=== PATIENT | male | born 1955 | race Caucasian/White ===

== ENCOUNTER 2018-11-14 00:28 | Inpatient (IN) ==
[2018-11-14] MEDS ORDERED: NS 1,000 ML IV ONE (00:53)
[2018-11-14] MEDS ORDERED: ZOFRAN IV ONE ×2 (00:53→02:54)
[2018-11-14] MEDS ORDERED: MORPHINE IV ONE ×2 (00:53→02:40)
[2018-11-14 01:20] LABS: BASO# 0.03 X1000 (0.0-0.2); BASO% 0.2 % (0.0-0.8); EOS# 0.04 X1000 (0.0-0.7); EOS% 0.3 % (0.0-10.0); HEMOGLOBIN 15.5 g/dL (14.0-18.0); IMM GRAN# 0.02 X1000 (0.0-0.04); IMM GRAN% 0.1 % (0.0-0.5); LYMPH# 1.06 X1000 (1.2-3.4); LYMPH% 7.6 % (20.5-51.1); MCH 28.1 PG (27-31); MCHC 34.4 g/dL (33-37); MCV 81.7 FL (81-99); MONO# 0.45 X1000 (0.11-0.59); MONO% 3.2 % (1.7-9.3); MPV 12.2 FL (7.4-10.4); NEUT# 12.32 X1000 (1.4-6.5); NEUT% 88.6 % (42.2-75.2); PLT 274 X1000 (130-400); RBC 5.51 XMIL (4.7-6.1); RDW 13.3 % (11.5-14.5); WBC 13.92 X1000 (4.8-10.8)
[2018-11-14 01:30] LABS: AGAP 15; ALB/GLOB RATIO 1.8; ALBUMIN 4.9 g/dL (3.5-5.0); ALKALINE PHOSPHATASE 87 U/L (32-122); AMYLASE 59 U/L (20-200); BUN 22 mg/dL (8-22); CALCIUM 9.8 mg/dL (8.8-10.2); CHLORIDE 100 mmol/L (98-107); COSMO 288; ESTIMATED GFR > 60; GLUCOSE 300 mg/dL (70-104); GOT 16 U/L (10-34); GPT 18 U/L (10-44); LIPASE 40 U/L (13-60); POTASSIUM 4.3 mmol/L (3.5-5.1); SODIUM 137 mmol/L (136-145); TCO2 22 mmol/L (25-35); TOTAL BILIRUBIN 0.62 mg/dL (0.20-1.00); TOTAL PROTEIN 7.7 g/dL (6.3-8.3)
[2018-11-14 03:03] LABS: URINE SOURCE CLEAN CATCH
--- NOTE | 2018-11-14 03:08 | PROVIDER DOCUMENTATION ---
This chart was entered by Paula Akins Scribe, acting as scribe for Shan Palma MD. HPI-Abdominal Pain/GI Problem - General Chief Complaint: Abdominal Pain Stated Complaint: ABD PAIN Time Seen by Provider: 11/14/18 00:53 Source: patient Allergies/Adverse Reactions: Patient Allergies Allergy/AdvReac Type Severity Reaction Status Date / Time No Known Allergies Allergy Verified 02/26/15 23:15 Home Medications: Home Medication List Medication Instructions Recorded Confirmed Last Taken Type Aspirin 81 mg PO HS 02/26/15 02/26/15 02/25/15 21:00 History Diltiazem HCl [Cardizem LA] 240 mg PO HS 02/26/15 02/26/15 02/25/15 21:00 History Furosemide [Lasix] 20 mg PO DAILY 02/26/15 02/26/15 02/26/15 09:00 History Gemfibrozil 600 mg PO HS 02/26/15 02/26/15 02/25/15 History 600mg po Glipizide/Metformin HCl 1 each PO HS 02/26/15 02/26/15 02/25/15 21:00 History [Glipizide-Metformin 2.5-500 mg] Insulin Aspart [Novolog Flexpen] 100 unit SQ DIRECTED 02/26/15 02/26/15 02/26/15 History Insulin Glargine [Lantus] 75 unit SUBQ QAM 02/26/15 02/26/15 02/26/15 08:00 History sq Lansoprazole 30 mg PO HS 02/26/15 02/26/15 02/25/15 21:00 History Losartan [Cozaar] 100 mg PO DAILY 02/26/15 02/26/15 02/25/15 21:00 History Omeprazole 40 mg PO HS 02/26/15 02/26/15 02/25/15 21:00 History Potassium Chloride [Klor-Con M20] 20 mcg PO HS 02/26/15 02/26/15 02/25/15 21:00 History Pravastatin Sodium 80 mg PO HS 02/26/15 02/26/15 02/25/15 21:00 History 1po - History of Present Illness-ABD Nature of Presenting Problems: pt is a 62 yr old male presenting with complaint of epigastric pain, nausea and vomiting, pt reports onset at 1400, vomiting began at 1700 and has continued since. pt reports severe pain, no diarrhea, fever/chills. pt denies any other complaints Abdominal Pain Onset Location: reports: epigastric Pain Radiation: reports: no radiation Quality of Pain: reports: cramping, fullness, sharp Severity in ED: reports: severe Onset/Duration: reports: this afternoon (1400) Timing: reports: still present, changing over time, getting worse Activities at Onset: reports: light activity Exposure to sick contacts?: No Modifying Factors: improves with: nothing Associated Symptoms: reports: nausea, vomiting. denies: chest pain, constipation, diarrhea, fever/chills, genitourinary problems, shortness of breath Last BM: unsure Dark Stools Present?: reports: none noticed Rectal Bleeding: reports: none Rectal Pain: reports: none # of Vomiting Episodes: 10 Emesis Description: reports: other (bile) Bruising or Bleeding Gums?: No Similar Symptoms Previously?: No Recently seen or treated by another doctor?: No Review of Systems - Adult - REVIEW OF SYSTEMS - ADULT Constitutional: reports: fatique. denies: chills, fever Eyes: reports: no symptoms reported Ears, Nose, Mouth & Throat: reports: no symptoms reported Cardiovascular: denies: chest pain, palpitations, syncope Respiratory: denies: shortness of breath Gastrointestinal: reports: abdominal pain, nausea, vomiting. denies: diarrhea Genitourinary: denies: dysuria, frequency, flank pain Musculoskeletal: reports: no symptoms reported Integumentary: reports: no symptoms reported Neurological: denies: dizziness/vertigo, headache/migraines Psychiatric: reports: no symptoms reported Endocrine: reports: no symptoms reported Hematologic/Lymphatic: reports: no symptoms reported Allergic/Immunologic: reports: no symptoms reported All Other Systems: Reviewed and Negative Past History - Adult - PAST MEDICAL HISTORY-ADULT Review of Records: reports: Old Records Reviewed, Nursing Assessment Review, Medications Reviewed, Social history reviewed & non-contributory. Major Childhood Illnesses: reports: denies history Cardiovascular: reports: denies history Respiratory: reports: denies history Gastrointestinal: reports: denies history Obstetrical/Gynecological: reports: denies history Genitourinary: reports: denies history Musculoskeletal: reports: denies history Neurological: reports: denies history Endocrine/Immune: reports: Diabetes Other Conditions: reports: denies history - IMMUNIZATION STATUS Childhood Immunizations: See Nurse Assessment Flu Vaccine: See Nurse Assessment - FAMILY HISTORY Family History: reviewed, not pertinent - SOCIAL HISTORY Smoking: denies Substance Use: denies Living Situation: family Physical Exam-General - PHYSICAL EXAM-ADULT Initial Vital Signs Reviewed: Yes - CONSTITUTIONAL General Appearance: alert, moderate distress, obese - EYES Eyes: PERRL/EOMI - HEAD, EARS, NOSE, MOUTH & THROAT HENMT: normocephalic/atraumatic, moist mucous membranes - NECK Neck: non-tender, full range of motion, supple, normal inspection - RESPIRATORY Respiratory: chest non-tender, lungs clear, normal breath sounds - CARDIOVASCULAR Cardiovascular: normal peripheral pulses, regular rate, rhythm, no edema - GASTROINTESTINAL (ABDOMEN) Abdominal Exam: normal bowel sounds, soft, tenderness (epigastric tenderness) - LYMPHATIC Lymphatic: no adenopathy - MUSCULOSKELETAL Back Exam: normal inspection Extremity: normal range of motion, non-tender - SKIN Integumentary: normal color, normal turgor, warm/dry - PSYCHIATRIC Psych/Mental Status: normal mood/affect Progress - PLAN OF CARE/RESULTS Progress/Plan/Lab Results: Vital Signs - 8 hr 11/14/18 00:39 Temperature 98.9 F Pulse Rate 79 Respiratory Rate 19 Blood Pressure 205/89 O2 Sat by Pulse Oximetry 97 Orders Category Date Time Status Saline Loc DIRECTED Care 11/14/18 00:42 Active NPO Diet 11/14/18 00:[address] ABD/PELVIS W/IV CONT ONLY [CT] Stat Exams 11/14/18 00:53 Ordered AMYLASE [CHEM] Stat Lab 11/14/18 00:42 Ordered CBC WITH ELECTRONIC DIFF [HEME] Stat Lab 11/14/18 00:42 Ordered COMPREHENSIVE METABOLIC PANEL [CHEM] Stat Lab 11/14/18 00:42 Ordered LIPASE [CHEM] Stat Lab 11/14/18 00:42 Ordered TROPONIN T Stat Lab 11/14/18 00:54 Uncollected URINALYSIS W/POSS RFLX CULT [URINALYSIS] Stat Lab 11/14/18 00:42 Uncollected 0.9% Sodium Chloride Inj [Ns] 1,000 ml Med 11/14/18 00:53 Active IV 999 mls/hr Morphine Med 11/14/18 00:53 Discontinued 4 mg IV NOW ONE Ondansetron [Zofran] Med 11/14/18 00:53 Discontinued 4 mg IV NOW ONE patient with persistent pain, cholelithiasis and leukocytosis. Result Diagrams: 11/14/18 00:45 11/14/18 00:45 - CT/MRI 1 CT Study: Abdomen, Pelvis Impression: See EMR Report (cholelithiasis) - CONSULTS/PCP/HOSPITALIST Notification #1 *Consult/PCP/Hospitalist*: Dr. Barrera Time Discussed: 03:07 Consult Disposition: Admit (to hospitalist) #2 Consult: Dr. Beltran Time Discussed: 03:16 Consult Disposition: Admit Departure - Departure Date of Disposition Decision: 11/14/18 Time of Disposition Decision: 03:07 DIAGNOSIS: Leukocytosis Cholelithiases Qualifiers: Cholelithiasis location: gallbladder Cholecystitis acuity: unspecified acuity Biliary obstruction: without biliary obstruction Disposition: ADMITTED INPATIENT 09 Certified Medical Emergency: Emergent Condition: Serious Referrals and Follow-Ups: Isaura Watkins MD [Primary Care Provider] - - Critical Care Note This patient required my direct & personal management of CC.: No Attestation - Physician/ JON Attestation The physician spent face to face time with patient:: Yes Advanced Practice Provider documentation review:: Supervising physician onsite and consulted in the evaluation and care of this patient. The physician did have a face to face encounter with the patient. This chart was documented by the indicated scribe, (Paula Akins Scribe) and accurately reflects the services I performed and decisions made by me, Shan Palma MD, as attested by the provider's signature.
[2018-11-14 03:12] LABS: UR EPITHELIAL CELLS <10 /HPF (<10); URINE BACTERIA NEGATIVE /HPF; URINE RBC <10 /HPF (<10); URINE WBC <10 /HPF (<10)
[2018-11-14 03:14] LABS: BILIRUBIN URINE NEGATIVE (NEGATIVE); BLOOD URINE NEGATIVE (NEGATIVE); COLOR YELLOW; GLUCOSE URINE >1000 mg/dL (NEGATIVE); KETONE URINE 80 mg/dL (NEGATIVE); LEUKOCYTES URINE NEGATIVE (NEGATIVE); NITRITE URINE NEGATIVE (NEGATIVE); PH URINE 7.5; PROTEIN URINE NEGATIVE (NEGATIVE); SP GRAVITY URINE 1.032; TURBIDITY URINE CLEAR (CLEAR); UROBILINOGEN URINE NORMAL (NORMAL)
--- NOTE | 2018-11-14 04:18 | HISTORY AND PHYSICAL ---
PRIMARY CARE PHYSICIAN: Dr. Isaura Watkins. CHIEF COMPLAINT: Abdominal pain x1 day. HISTORY OF PRESENTING ILLNESS: This is a 62-year-old male with a history of hypertension, hyperlipidemia, diabetes mellitus type 2, who had presented to the emergency department with a 1- day history of having worsening right upper quadrant pain. The patient states that he was nauseated and vomiting. The patient states that the pain was pretty severe and subsequently had come to the emergency department. In the ED he was evaluated, he had imaging done which did show cholelithiasis. His case was discussed with General Surgery and due to the fact that the patient is symptomatic he will require admission for further management. At the time of my examination the patient denied any headache, fever, chills, chest pain, shortness of breath, or weight changes, but complained of abdominal pain, nausea, vomiting. PAST MEDICAL HISTORY: Includes hypertension, hyperlipidemia, diabetes mellitus type 2, hypoaldosteronism. PAST SURGICAL HISTORY: Left BKA, cervical fusion, right carpal tunnel release, adrenal gland removal. ALLERGIES: Menoxidil and Bactrim. CURRENT MEDICATIONS: Include aspirin 81 mg p.o. at bedtime, diltiazem 240 mg p.o. at bedtime, Lasix 20 mg p.o. daily, gemfibrozil 600 mg p.o. at bedtime. Glipizide/metformin 2.5/500 one p.o. at bedtime, NovoLog FlexPen as directed, insulin glargine 75 units subcutaneous q.a.m., pravastatin 80 mg p.o. at bedtime. SOCIAL HISTORY: A former smoker. Denies any history of alcohol or illicit drug use. FAMILY HISTORY: No history of coronary disease. REVIEW OF SYSTEMS: A 14-point review of systems is as in HPI. Other systems negative. PHYSICAL EXAMINATION: GENERAL: A cooperative friendly male. He is resting comfortably now. VITAL SIGNS: Temperature 98.9 degrees, pulse 79, respirations 19, blood pressure 205/89. HEENT: Atraumatic, normocephalic. Extraocular movements are intact. PERRLA. NECK: No masses. CHEST: Clear to auscultation. CARDIOVASCULAR: Regular rate and rhythm. ABDOMEN: Soft. Right upper quadrant tenderness. EXTREMITIES: [facility] NEUROLOGIC: He is awake, alert, oriented x3. : No bladder distention. SKIN: Warm. LABORATORIES AND STUDIES: WBC is 13.92, hemoglobin 15.5, hematocrit 45.0, platelets 274,000. Sodium 137, potassium 4.3, chloride 100, CO2 is 22, BUN is 22, creatinine is 1.0, glucose is 300. ASSESSMENT: A 62-year-old male with a history of diabetes mellitus type 2, hypertension, hyperlipidemia, who had presented to the emergency department with a 1-day history of worsening right upper quadrant pain. He was seen in the emergency department and was found to have gallstones on imaging. The case was discussed with General Surgery and due to the fact that the patient is symptomatic he will require admission for further management. 1. Symptomatic cholelithiasis. 2. Hypertension. 3. Diabetes mellitus type 2. 4. Hyperlipidemia. PLAN: 1. We will admit the patient to medical floor with telemetry. 2. We will keep the patient NPO. 3. We will give the patient adequate pain control antiemetics. 4. We will consult General Surgery. 5. We will monitor blood pressure closely. 6. We will monitor blood glucose and put the patient on a sliding scale insulin regimen. 7. We will hold home medications for now. 8. Put the patient on DVT prophylaxis with Lovenox after surgery. 9. We will continue to follow, reassess and make further recommendations based on the patient's clinical course. cc: Ermias Beltran MD MTDD
[2018-11-14] MEDS: MORPHINE IV PRN ×3 (05:00→23:29)
[2018-11-14] MEDS: NS 1,000 ML IV SCH ×2 (05:00→18:20)
[2018-11-14] MEDS: ZOFRAN IV PRN ×2 (05:00→09:33)
--- NOTE | 2018-11-14 05:54 | Diag Imaging Result Doc PS360 ---
EXAM: CT ABD/PELVIS W/IV CONT ONLY HISTORY: abd pain TECHNIQUE: CT abdomen and pelvis with intravenous contrast COMPARISON: 12/20/2016 FINDINGS: There are several calcified stones within a dilated gallbladder. No adjacent inflammation. There is fatty infiltration of the liver. Normal spleen, pancreas, adrenal glands, and kidneys. No hydronephrosis. Moderate atherosclerosis. No aortic aneurysm. No inflammation about the cecum. The appendix is not identified. No bowel obstruction. No ascites. The prostate is not enlarged. The urinary bladder is distended and normal. IMPRESSION: 1.Fatty infiltration of the liver 2.Cholelithiasis 3.A preliminary report was given 2:51 AM This exam was performed using automated exposure control, adjustment of mA or kV according to patient size, and/or use of iterative reconstruction technique. Electronically signed by Hilario Uribe 11/14/2018 5:52 AM
--- NOTE | 2018-11-14 06:18 | GENERAL SURGERY CONSULTATION ---
DATE: 11/14/2018 REQUESTING PHYSICIAN: The hospitalist. REASON FOR CONSULTATION: Symptomatic cholelithiasis. HISTORY OF PRESENT ILLNESS: A 62-year-old gentleman with history of hypertension, hyperlipidemia, diabetes mellitus type 2, presented to the emergency department with a 1-day history of worsening epigastric and right upper quadrant pain. It has been associated nausea and vomiting, although does not seem to have any relationship to food. He has never had pain like this before. He was seen in the emergency department and had a CT scan that showed cholelithiasis and a distended gallbladder. He has been admitted by the hospitalist for further evaluation. He has been told before that he has had cholelithiasis, but has never had symptoms. He does have acid reflux, but this does not seem to be similar to that. He takes Prilosec on a daily basis. PAST MEDICAL HISTORY: 1. Hypertension. 2. Hyperlipidemia. 3. Diabetes mellitus type 2. 4. Hypoaldosteronism. 5. Gastroesophageal reflux disease. PAST SURGICAL HISTORY: 1. Previous left [id number] amputation. 2. Cervical fusion. 3. Right carpal tunnel release. 4. Adrenal gland removal. ALLERGIES: Minoxidil and Bactrim. CURRENT MEDICATIONS: Reviewed. SOCIAL HISTORY: Former smoker. FAMILY HISTORY: Reviewed with patient, noncontributory. REVIEW OF SYSTEMS: Fourteen systems were reviewed and are negative, except those specified in HPI. PHYSICAL EXAMINATION: Vital Signs: Patient is currently afebrile. His vital signs are stable. General: No acute distress. male, looks stated age. HEENT: Normocephalic, atraumatic. Pupils equal, round, reactive to light. Mucous membranes moist. Oropharynx benign. Neck: Supple. Trachea midline. Cardiovascular: Regular rate and rhythm. Lungs: Grossly clear. Abdomen: Tender to palpation in right upper quadrant. Extremities: No edema. Neurologic: Grossly intact. Skin: No signs of jaundice. Vascular: All extremities perfused. LABORATORY: White blood cell count is 13.9. Remainder of labs reviewed. Bilirubin, alkaline phosphatase, and AST and ALT all normal. Lipase and amylase normal. CT scan independently reviewed and radiology report reviewed. ASSESSMENT AND PLAN: A 62-year-old gentleman with likely symptomatic cholelithiasis. 1. Symptomatic cholelithiasis. At this time, we will plan on surgical intervention. Discussed the risks, benefits, alternatives of the procedure. Risks including, but not limited to, bleeding, infection, risk of anesthesia, risk of common bile duct injury, risk of bile leak, risk of injuring other organs discussed. He voiced understanding and wished to proceed with the procedure. Discussed with patient that if he does not have improvement of his symptoms, we will consider EGD and evaluation for peptic ulcer disease. But, again, he is already on Pepcid every day and this does not sound like his normal gastroesophageal reflux disease. 2. Gastroesophageal reflux disease. At this time, see above. 3. Multiple medical comorbidities. Currently being managed by the hospitalist. cc: MD Ermias Gonzalez MD
--- NOTE | 2018-11-14 07:58 | EKG Report ---
Test Performed on : 11/14/2018 00:33:59 AM Test Reason : ED. NO EKG ORDER FOR MUSE Blood Pressure : / mmHG Vent. Rate : 076 BPM Atrial Rate : 076 BPM P-R Int : 154 ms QRS Dur : 080 ms QT Int : 380 ms P-R-T Axes : 028 077 109 degrees QTc Int : 427 ms Normal sinus rhythm. T wave abnormality, consider lateral ischemia Abnormal ECG When compared with ECG of 30-OCT-2011 12:43, No significant change was found Unconfirmed Result
--- NOTE | 2018-11-14 11:37 | Diag Imaging Result Doc PS360 ---
EXAM: US ABDOMEN-COMPLETE 11/14/2018 HISTORY: abdominal pain TECHNIQUE: Abdominal ultrasound COMMENT: The visualized portions of the aorta and inferior vena cava are within normal limits. The pancreatic body is relatively normal in appearance the remainder is obscured. The liver is slightly hyperechoic. There stones in the gallbladder, one of which exceeds 3 cm in diameter. There is a small amount of para cholecystic fluid. The gallbladder wall is not thickened. There is a positive sonographic Becerril sign. There is no evidence of biliary dilatation the common bile duct measuring less than 5 mm. The kidneys are without evidence of hydronephrosis or mass. The spleen is not enlarged. There is antegrade flow in the portal vein. IMPRESSION: Cholelithiasis with possible cholecystitis. Hepatic steatosis. Electronically signed by Petros Cohen 11/14/2018 11:34 AM
[2018-11-14] MEDS ORDERED: MEFOXIN 2 GM/NS 2 GM/50 ML IVPB IV ONE (12:00)
[2018-11-14] MEDS: HUMULIN R SUBQ SCH ×3 (12:14→22:01)
[2018-11-14] MEDS ORDERED: ZOFRAN ONE (12:22)
[2018-11-14] MEDS ORDERED: XYLOCAINE-MPF 2% ONE (13:30)
[2018-11-14] MEDS ORDERED: QUELICIN (DOSE) ONE (13:31)
[2018-11-14] MEDS ORDERED: DIPRIVAN 1% ONE (13:31)
[2018-11-14] MEDS ORDERED: FENTANYL ONE (13:32)
[2018-11-14] MEDS ORDERED: SODIUM CHLORIDE 0.9% ONE (13:35)
[2018-11-14] MEDS ORDERED: LR 1,000 ML ONE (13:35)
[2018-11-14] MEDS ORDERED: MARCAINE 0.25% PF/EPI 1:200,000 ONE (13:35)
[2018-11-14] MEDS ORDERED: ZEMURON ONE ×2 (13:50→14:34)
[2018-11-14] MEDS ORDERED: DILAUDID ONE (14:33)
[2018-11-14] MEDS ORDERED: ROBINUL ONE (15:07)
[2018-11-14] MEDS ORDERED: NEOSTIGMINE ONE (15:07)
[2018-11-14] MEDS: OFIRMEV 1000 MG/ISOTONIC SOLN 1,000 MG/100 ML BOTTLE ONE ×2 (16:55→20:19)
[2018-11-14] MEDS: LR 1,000 ML ONE ×2 (17:00→20:19)
[2018-11-14] MEDS ORDERED: NS 1,000 ML ONE (17:05)
[2018-11-14] MEDS: MEFOXIN 2 GM/NS 2 GM/50 ML IVPB IV SCH ×2 (17:30→18:22)
--- NOTE | 2018-11-14 18:08 | PROGRESS NOTE ---
DATE: 11/14/2018 SUBJECTIVE: I saw Mr. Xiao today in recovery room. He just came out of surgery. I spoke directly with Dr. Barrera. According to Dr. Barrera, laparoscopic was quite difficult so he had to do an open classic cholecystectomy. Postoperatively, he is slightly tachycardic and febrile, so he is going to be transferred to [facility] for close monitoring. At this point Mr. Xiao is sleeping so he is not able to give any interim history. OBJECTIVE: Abdomen: There is a drain in the right upper quadrant. Abdomen is globally distended. Extremities: He has a right below-knee amputation. ASSESSMENT AND PLAN: For now he is going to be transferred to [facility] for close monitoring because of systemic inflammatory response syndrome. Mr. Xiao is currently on IV fluids and cefoxitin. We are going to continue with the current antimicrobial therapy. cc: MD Ermias Tinajero MD
[2018-11-14] MEDS ORDERED: BLISTEX MEDICATED BERRY LIP BALM TOP ONE (18:12)
--- NOTE | 2018-11-14 20:01 | OPERATIVE NOTE ---
PROCEDURE DATE: 11/14/2018 PREOPERATIVE DIAGNOSIS: Cholecystitis. POSTOPERATIVE DIAGNOSIS: Suppurative cholecystitis. PROCEDURE: Laparoscopic converted to open cholecystectomy. SURGEON: Sharan Barrera MD. SPONSORSHIP MANAGER: None. ANESTHESIA: General endotracheal. INTRAOPERATIVE FINDINGS: Suppurative cholecystitis with very thin walled and friable gallbladder, difficult anatomy to visualize laparoscopically. COMPLICATIONS: None at the time of this dictation. ESTIMATED BLOOD LOSS: 100 mL. SPECIMENS REMOVED: Gallbladder. DRAINS: 19-Frisian drain. BRIEF HISTORY: A 62-year-old gentleman presenting with right upper quadrant epigastric pain seen in the emergency department, had a CT scan and ultrasound that showed cholecystitis and felt that she would benefit from a cholecystectomy. The risks, benefits, and alternatives were discussed. Risks including, but not limited to bleeding, infection, risk of anesthesia, risk of common bile duct injury, bile leak, injury to surrounding organs discussed. All questions answered. DESCRIPTION OF PROCEDURE: After informed consent was obtained, the patient was brought to the operative theater and transferred to the operating table and placed in supine position. General endotracheal anesthesia was then performed without complication. A formal time-out was then performed confirming patient, date of procedure. All in agreement. At that time, attention was given to the abdomen. Infraumbilical incision was made through which an Optiview technique we inserted 11 mm trocar and connected to insufflation. Pneumoperitoneum was achieved under direct visualization and placed 3 more trocars, 1 in the subxiphoid, 2 in the right upper quadrant. Using these, gallbladder was identified. It was very inflamed and thin-walled posteriorly. We elevated, but we were not able to. We then had to suction out some of the bile in it. It was suppurative. We were able to elevate it and retract it cephalad. The anatomy itself was very difficult. We got an angled scope to try to visualize it better, but it was very friable at the infundibulum. I tried multiple maneuvers to try to visualize better. We even started doing a top- down approach laparoscopically, but it got down to the point where the infundibulum and junction with the cystic duct that was very unsure visually with the anatomy and given the fact it was starting to tear that I could not safely proceed laparoscopically. We then converted to a subcostal incision on the right to enter into the abdomen. Upon doing this, we visualized the gallbladder itself. I dissected more by feel and electrocautery, found the cystic artery, clipped it and ligated it. Came down the gallbladder further from the liver in a top-down approach. We came to a point where I felt as though we were at the junction with the cystic duct infundibulum, but everything was very friable and felt that I could not easily identify everything without tearing it. I therefore elected to use a TA stapler across the infundibulum. We used a 30 load with stapler with good results. We confirmed in the specimen that we had come across the cystic duct. We did not see any compromise of the common bile duct or any other structures in the portal triad. Again, we seem to be right at the junction with the cystic duct in the infundibulum. We irrigated out. I did not see any other lumens to suggest that we had injured any other structures, but again the inflammation made anatomy identification difficult. We irrigated out until the suction fluid was clear, but given the inflammation, the difficulty with the anatomy, the possibility of a bile leak given the inflamed nature, I elected to leave a drain for the most lateral trocar site, which we tunneled in, secured in place. We then proceeded to close the subcostal incision with a 0 Vicryl, closed it in multiple layers. We then closed the skin with jose. The infraumbilical incision was offset, and the fascial defects were offset so we did not have to close it, but we closed the skin with jose. The patient tolerated the procedure. The family was updated. cc: MD Ermias Gonzalez MD
[2018-11-15] MEDS: NORCO-10 PO PRN ×5 (00:09→20:16)
[2018-11-15] MEDS: MEFOXIN 2 GM/NS 2 GM/50 ML IVPB IV SCH ×2 (00:12→06:19)
[2018-11-15] MEDS: NS 1,000 ML IV SCH ×2 (01:30→05:06)
[2018-11-15] MEDS: MORPHINE IV PRN ×5 (03:23→19:06)
[2018-11-15] MEDS: HUMULIN R SUBQ SCH ×4 (07:10→21:02)
[2018-11-15 07:39] LABS: BASO# 0.02 X1000 (0.0-0.2); BASO% 0.1 % (0.0-0.8); HEMATOCRIT 32.6 % (42.0-52.0); HEMOGLOBIN 10.7 g/dL (14.0-18.0); IMM GRAN# 0.06 X1000 (0.0-0.04); IMM GRAN% 0.3 % (0.0-0.5); LYMPH# 0.45 X1000 (1.2-3.4); LYMPH% 1.9 % (20.5-51.1); MCH 28.4 PG (27-31); MCHC 32.8 g/dL (33-37); MCV 86.5 FL (81-99); MONO# 0.88 X1000 (0.11-0.59); MONO% 3.8 % (1.7-9.3); MPV 12.9 FL (7.4-10.4); NEUT# 22.05 X1000 (1.4-6.5); NEUT% 93.9 % (42.2-75.2); PLT 152 X1000 (130-400); RBC 3.77 XMIL (4.7-6.1); RDW 13.9 % (11.5-14.5); WBC 23.46 X1000 (4.8-10.8)
[2018-11-15 07:45] LABS: ALBUMIN 3.1 g/dL (3.5-5.0); CALCIUM 7.8 mg/dL (8.8-10.2); CREATININE 2.5 mg/dL (0.7-1.2); PHOSPHORUS 4.1 mg/dL (2.7-4.5); POTASSIUM 4.2 mmol/L (3.5-5.1)
--- NOTE | 2018-11-15 07:50 | GENERAL SURGERY PROGRESS NOTE ---
DATE: 11/15/2018 SUBJECTIVE: The patient seems to be doing okay. They have had difficulty with him voiding, an issue with Robert catheter. He has not really had much in the way of urine output. He attempted to try to catheterize himself and the nurses tried several times. The catheter apparently went through his urethra, but unsure of its exact position. There is no blood in the Robert catheter. OBJECTIVE: Vital Signs: Patient is currently with temperature of 100.2 degrees, pulse 100, blood pressure 91/53, O2 saturation 95%. General Exam: No acute distress. Cardiovascular: Some mild tachycardia. Lungs: Grossly clear. Abdomen: Soft, appropriately tender. Incision with some saturation. RAMBO drain in place with serosanguineous output. ASSESSMENT AND PLAN: A 62-year-old gentleman postoperative day #1 from open cholecystectomy with systemic inflammatory response syndrome. 1. Postoperative state: At this time, he likely does have a little bit of systemic inflammatory response syndrome, and could potentially even consider it sepsis given the fact that he has a source with his gallbladder. By this time, he is already improving. We will continue resuscitation. We will keep him on intravenous antibiotics. We will continue to monitor him in the PVC. Hospitalist on board also. I discussed his case yesterday with Dr. Lew. We will keep a close eye on him overall. cc: MD Ermias Gonzalez MD
[2018-11-15 08:17] LABS: BANDS 18 % (0-1); LYMPHS 4 % (21-51); MONO 5 % (1-9); SEGS 71 % (42-75)
--- NOTE | 2018-11-15 09:24 | Diag Imaging Result Doc PS360 ---
CHEST-1 VIEW - 11/15/2018 INDICATION: sepsis. r/o pneumonia COMPARISON: 06/26/2018 FINDINGS: Lung volumes are much lower, critically low. There is some hazy atelectasis in the lung bases. No dense infiltrates. There is probably artificial cardiomegaly and pulmonary vascular congestion. IMPRESSION: Critically low lung volumes. Nonspecific findings. Electronically signed by Rommel Regalado 11/15/2018 9:21 AM
[2018-11-15] MEDS: ZOSYN 2.25 GM in NS 50 ML IV SCH ×3 (09:47→20:00)
[2018-11-15 15:21] LABS: URINE SOURCE CATH
[2018-11-15 15:28] LABS: BILIRUBIN URINE NEGATIVE (NEGATIVE); BLOOD URINE MODERATE (NEGATIVE); COLOR YELLOW; GLUCOSE URINE TRACE mg/dL (NEGATIVE); KETONE URINE 10 mg/dL (NEGATIVE); LEUKOCYTES URINE NEGATIVE (NEGATIVE); NITRITE URINE NEGATIVE (NEGATIVE); PROTEIN URINE 50 mg/dL (NEGATIVE); SP GRAVITY URINE 1.028; TURBIDITY URINE HAZY (CLEAR); UROBILINOGEN URINE NORMAL (NORMAL)
[2018-11-15 15:33] LABS: UR EPITHELIAL CELLS <10 /HPF (<10); URINE BACTERIA NEGATIVE /HPF; URINE RBC <10 /HPF (<10); URINE WBC <10 /HPF (<10)
[2018-11-15 15:48] LABS: URINE CASTS GRANULAR PRESENT; URINE CRYSTALS NONE SEEN; URINE SMALL ROUND CELLS NONE SEEN; URINE YEAST NONE SEEN
[2018-11-15 15:49] LABS: UR CREAT RANDOM 207.1 mg/dL (14-26)
--- NOTE | 2018-11-15 17:41 | PROGRESS NOTE ---
DATE: 11/15/2018 SUBJECTIVE: This morning Mr. Xiao referred to be hurting in his abdomen. He had already been seen early on by surgery. His white cell count has gone up. I understand his blood pressure also went a little low early on very early this morning and he has been fairly tachycardic throughout the day. OBJECTIVE: Current vitals: Blood pressure is 142/73, pulse of 111, respiration is 20, temperature 97.5 degrees, patient has a T-max of 100.2 early this morning at about 4. General: Mr. Xiao is a 62-year-old gentleman he was in bed, no distress. Mucosa is pink and moist. Anicteric. Acyanotic. Neck: Supple. Chest: Good air entry bilateral. There was no crepitations, no rhonchi. Cardiovascular: Regular rate and rhythm. Abdomen: Soft, is distended. There is a palpable lower abdomen mass which is suggestive of probably distended bladder. There is tenderness in the entire abdominal wall but no rebound. There is a RAMBO drain in the right upper quadrant. The surgical wound is covered with sterile dressing. Extremities: Patient has a right BKA. Left was unremarkable. 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 LABORATORY DATA: WBC 23.46, hemoglobin is 10.7, platelet count of 152,000. Chemistry is also reviewed. Creatinine has jumped up to 2.5. I think there is some obstructive uropathy going on. A chest x-ray which we ordered early this morning shows clinical low volumes, nonspecific findings, for sure there was no any major consolidation to think of pneumonia. ASSESSMENT: 1. Sepsis most likely due to the gallbladder infection which has been removed. Will go ahead and broaden the spectrum of the antimicrobial and we have done blood cultures. 2. Anuria. Patient has not had any urine output despite the Robert catheter is in place, I am not 100% sure, on physical exam it looks like he has a distended bladder. The nurses did a bladder scan and he is retaining so I have consulted Urology to see the patient and help us with placement of the tube. 3. Biliary colic with acute cholecystitis. Patient is status post gallbladder removal yesterday by Dr. Barrera. 4. Diabetes mellitus controlled. 5. Hypertension. 6. Dyslipidemia. 7. Status post right below-knee amputation. 8. Acute kidney injury which sounds to be postobstructive uropathy. Will get a renal ultrasound but I think for most part once we get the catheter going he should be okay. So today Mr. Xiao is showing signs of being septic but I think it is probably all being driven by the fact that he is not passing any urine from an obstructive uropathy standpoint. Will get Urology to help us with the Robert catheter placement and then just go from there. I have broadened his antimicrobial coverage and we have done blood cultures and his chest x-ray is negative. cc: MD Ermias Tinajero MD MTDD
--- NOTE | 2018-11-15 18:39 | CONSULTATION ---
DATE OF CONSULTATION: 11/15/2018 CHIEF COMPLAINT: Urinary retention with difficult catheter placement. HISTORY OF PRESENT ILLNESS: Mr. Xiao is a 62-year-old with history of hypertension, hyperlipidemia, type 2 diabetes, [id number] amputation, and history of cervical fusion who presented to the emergency room on 11/14/2018 with right upper quadrant abdominal pain. The patient had a CT scan, as well as abdominal ultrasound, which showed concern for cholelithiasis with possible cholecystitis. The patient was taken to the operating room by Dr. Barrera, had a quite difficult cholecystectomy, laparoscopic cholecystectomy converted to open cholecystectomy. The patient was admitted to the [facility] afterwards. The patient had difficulty with urination, and several attempts were tried at placing an indwelling catheter by nursing staff. The patient was not able to adequately have catheter inserted, and urology was consulted for further recommendations. The patient describes having to self-catheterize himself just to get the urine out earlier in the day. The patient states he has never done this previously. He states he has no voiding complaints at home and denies any urgency, frequency, hesitancy, or weak urinary stream. He states he may get up once at night to urinate. The patient was seen previously by Dr. Bazan for kidney stones. He denies taking medications for his prostate. PAST MEDICAL HISTORY: 1. Hypertension. 2. Hyperlipidemia. 3. Type 2 diabetes. 4. Hyperaldosteronemia. PAST SURGICAL HISTORY: 1. Left below-knee amputation. 2. Cervical fusion. 3. Knee surgery. 4. Right carpal tunnel release. 5. Adrenal gland removal. 6. Laparoscopic converted to open cholecystectomy. ALLERGIES: 1. Bactrim. 2. Minoxidil. HOME MEDICATIONS: 1. Aspirin 81 mg p.o. daily. 2. Diltiazem 240 mg p.o. at bedtime. 3. Lasix 20 mg p.o. daily. 4. Gemfibrozil 600 mg p.o. at bedtime. 5. Glipizide and metformin 2.5/500 one tablet at bedtime. 6. NovoLog. 7. Insulin glargine 75 units in the morning. 8. Pravastatin 80 mg p.o. at bedtime. FAMILY HISTORY: Denies family history of malignancy. SOCIAL HISTORY: Former smoker. Denies alcohol or illicit drug use. REVIEW OF SYSTEMS: A 12-point review of systems performed with all pertinent positives and negatives in the HPI. PHYSICAL EXAMINATION: Vital Signs: Temperature 97.3 degrees, heart rate 111, blood pressure 142/73, oxygen saturation 95% on room air. General: Mild distress, complaining of abdominal pain. Alert and oriented x3. HEENT: Normocephalic, atraumatic. Pupils equal, round, reactive to light. Extraocular movements intact. Neck: Trachea midline. Chest: Good respiratory effort with no audible wheezing or rales. Cardiovascular: Tachycardia with regular rhythm. Abdomen: Soft, slight tenderness to palpation, most prominent in the right upper quadrant. RAMBO drain with serosanguineous fluid. Dressing is present overlying the right upper quadrant. Genitourinary: Evidence of suprapubic tenderness. Normal phallus with orthotopic meatus. Bilateral testicles palpated without masses. Urethral catheter in place draining no urine. Extremities: Left below- the-knee amputation. Neurologic: Gross motor and sensory intact. Skin: No obvious skin lesions or rashes. LABS: Labs this morning showed white blood cell count of 23.5, hemoglobin 10.7, hematocrit 32.6, platelets 152,000. Sodium 136, potassium 4.2, chloride 102, bicarbonate 20, BUN 29, creatinine 2.5, glucose 219, calcium 7.8. CT scan from August 14 reviewed for urologic findings. No obvious lesions within either kidney. No evidence of any renal cystic disease. No hydronephrosis. The patient's prostate appears relatively small. ASSESSMENT AND PLAN: Mr. Xiao is a 62-year-old who presents as a consult for urinary retention and difficult catheter placement. The patient has not been able to urinate since his cholecystectomy. He is becoming very uncomfortable. He attempted self- catheterization and got maybe 300 out. Nursing staff had attempted several times to have a catheter inserted, but have met resistance both times. I removed the current catheter, as it was not draining any irrigant and was not able to be flushed. Using sterile technique, attempted to place a 14- Portuguese Coude catheter but met resistance near the prostatic urethra. Ultimately, I obtained a ZIPwire and passed this easily into the bladder and was able to thread it through the catheter using a 16- gauge needle and able to advance the catheter all the way into the bladder with return of yellow urinary output. Approximately 400 mL were drained during my observation. The catheter was inflated with 10 mL sterile water and placed to gravity drainage with a StatLock. The patient had relief of his symptoms at that time. I will continue to monitor from a urologic standpoint. We keep indwelling catheter in until more ambulatory or at least 3 days. We will continue to monitor from a urologic standpoint. Please call with questions or concerns. cc: MD Ermias Hampton MD MTDD
[2018-11-15] MEDS: LOPID PO SCH (22:33)
[2018-11-16] MEDS: ZOSYN 2.25 GM in NS 50 ML IV SCH ×4 (02:33→20:59)
[2018-11-16] MEDS: MORPHINE IV PRN ×3 (03:13→20:54)
[2018-11-16] MEDS: HUMULIN R SUBQ SCH ×5 (06:14→20:59)
[2018-11-16 07:43] LABS: AGAP 14; ALKALINE PHOSPHATASE 86 U/L (32-122); BUN 28 mg/dL (8-22); CALCIUM 8.1 mg/dL (8.8-10.2); CHLORIDE 105 mmol/L (98-107); COSMO 290; CREATININE 1.2 mg/dL (0.7-1.2); ESTIMATED GFR > 60; GLUCOSE 197 mg/dL (70-104); GOT 89 U/L (10-34); GPT 122 U/L (10-44); MAGNESIUM 2.1 mg/dL (1.5-2.7); PHOSPHORUS 2.1 mg/dL (2.7-4.5); SODIUM 140 mmol/L (136-145); TCO2 21 mmol/L (25-35); TOTAL BILIRUBIN 1.25 mg/dL (0.20-1.00); TOTAL PROTEIN 5.9 g/dL (6.3-8.3)
--- NOTE | 2018-11-16 07:53 | PROGRESS NOTE ---
DATE: 11/16/2018 SUBJECTIVE: This morning, Mr. Xioa refers to be feeling a whole lot better. He was evaluated yesterday by Dr. Murillo. A Robert catheter was successfully placed. Since then, he is making more urine and he denies any more pain. OBJECTIVE: Vital signs: Blood pressure is 150/69, pulse of 105, respiration is 25, temperature 98.7 degrees, patient is saturating 99%. General: Mr. Xiao is a 62-year-old gentleman, he is in bed. He did not seem to be in any distress. HEENT: Mucosa is pink and moist. Anicteric. Acyanotic. Neck: Supple. Chest: Clear to auscultation. No crepitations. No rhonchi. Cardiovascular: Regular rate and rhythm. Abdomen: Soft, distended, but nontender. Bowel sounds present. There is still a RAMBO drain in the right upper quadrant. Robert catheter is in place and is draining well. Extremity: Right lower extremity is unremarkable. Left lower extremity has a BKA. LABORATORY DATA: At present, none is available. ASSESSMENT: 1. Sepsis, most likely secondary to cholecystitis. 2. Acute urinary retention. This has been overcome by insertion of Robert catheter by Urology. The patient is making adequate urine. I understand he does have benign prostatic hypertrophy. 3. Symptomatic cholelithiasis with biliary colic and, on presentation, associated with acute cholecystitis. Patient is status post gallbladder removal. This was done in the classic way. 4. Diabetes mellitus, controlled on insulin regimen. 5. Hypertension, stable. 6. Dyslipidemia. 7. Status post left below-knee amputation. 8. Acute kidney injury secondary to obstructive uropathy. This has been overcome by a Robert catheter. We are pending his renal function test today. 9. History of cardiac arrhythmia. The patient is not sure, but he is on Cardizem. We will put him back on his home medications. PLAN: This morning, I think Mr. Xiao is doing a whole lot better. We are still pending his labs. He has been evaluated by both Urology and Surgery. The plan is to advance his diet. Continue with the current management. cc: MD Ermias Tinajero MD
[2018-11-16 07:57] LABS: BASO# 0.04 X1000 (0.0-0.2); BASO% 0.2 % (0.0-0.8); EOS# 0.45 X1000 (0.0-0.7); EOS% 2.8 % (0.0-10.0); HEMATOCRIT 30.8 % (42.0-52.0); HEMOGLOBIN 10.1 g/dL (14.0-18.0); IMM GRAN# 0.03 X1000 (0.0-0.04); IMM GRAN% 0.2 % (0.0-0.5); LYMPH# 0.72 X1000 (1.2-3.4); LYMPH% 4.4 % (20.5-51.1); MCH 28.5 PG (27-31); MCHC 32.8 g/dL (33-37); MCV 86.8 FL (81-99); MONO# 0.63 X1000 (0.11-0.59); MONO% 3.9 % (1.7-9.3); NEUT# 14.48 X1000 (1.4-6.5); NEUT% 88.5 % (42.2-75.2); PLT 150 X1000 (130-400); RBC 3.55 XMIL (4.7-6.1); RDW 13.8 % (11.5-14.5); WBC 16.35 X1000 (4.8-10.8)
[2018-11-16 07:59] LABS: BANDS 10 % (0-1); EOS 2 % (1-10); LYMPHS 10 % (21-51); SEGS 78 % (42-75)
--- NOTE | 2018-11-16 08:00 | GENERAL SURGERY PROGRESS NOTE ---
DATE: 11/16/2018 SUBJECTIVE: Patient seems to be doing okay. OBJECTIVE: Vital Signs: Patient is currently afebrile. His vital signs are stable. He still has a low-grade tachycardia. General exam: No acute distress. Cardiovascular: Some mild tachycardia. Lungs: Grossly clear. Abdomen: Soft, appropriately tender. RAMBO drain in place with serosanguineous output. ASSESSMENT AND PLAN: A 62-year-old gentleman currently postoperative day #2 from open cholecystectomy. 1. Postoperative state: At this time, he seems to be doing well. We will advance him to a low- fat diet and see how he does. cc: MD Ermias Gonzalez MD
[2018-11-16] MEDS: LOPID PO SCH ×2 (08:10→20:59)
[2018-11-16] MEDS: ASPIRIN PO SCH ×2 (08:11→20:59)
--- NOTE | 2018-11-16 08:53 | PROGRESS NOTE ---
DATE: 11/16/2018 SUBJECTIVE: Mr. Xiao was seen in consult regarding difficult catheter placement yesterday. I was able to pass the catheter over a wire and into the bladder. The patient had return of a large amount of urine yesterday with 1500cc recorded since. The patient has been voiding without issue through the catheter. He denies any pain. His urine is clear yellow. The patient's renal function is returning to normal with a creatinine of 1.2 today from 2.5 postoperatively. The patient states that he is slightly sore in his upper abdomen over the right upper quadrant. However, his suprapubic pain has now resolved. He denies any nausea, vomiting, is tolerating small amount of p.o. intake. OBJECTIVE: Vital Signs: Temperature 100.6 degrees, heart rate 105, respiratory 25, blood pressure 150/69, oxygen saturation 99% on 2 L nasal cannula. General: No acute distress. Resting comfortably in bed. Alert and oriented x3. Respiratory: Good respiratory effort without audible wheezing or rales. Currently on nasal cannula. Cardiovascular: Regular rhythm with low-grade tachycardia. Abdomen: Right upper quadrant incision is covered with dressing as well as a right upper quadrant RAMBO drain with serosanguineous fluid. Abdomen has slight tenderness to palpation. Genitourinary: No suprapubic tenderness. No CVA tenderness. Urethral catheter in place draining clear yellow urine. LABORATORY DATA: White blood cell count 16.4, hemoglobin 10.1, hematocrit 30.8, platelets 150,000. Sodium 140, potassium 4, chloride 105, bicarb 21, BUN 28, creatinine 1.2, glucose 197. Total bilirubin 1.25, AST 89, ALT 122. ASSESSMENT AND PLAN: Mr. Xiao is a 62-year-old with hypertension, hyperlipidemia, type 2 diabetes, and hyperaldosteronemia, who presented in consultation regarding urinary retention and difficulty with Robert catheter placement. Ultimately, a catheter was inserted yesterday over a wire. The patient had a CT scan performed previously which did not show a significantly enlarged prostate. Uncertain what led to difficulty with catheter placement. The patient could have a false passage from prior catheter attempts versus possible urethral stricture disease. Recommend leaving catheter in at least 3 days and would plan to remove it for voiding trial likely on Sunday. The patient seems to have gotten relief after indwelling catheter and he denies any issues with that. The patient does not have any issues with voiding at home. We will continue to monitor from a urologic standpoint. Please call with questions or concerns. cc: MD Ermias Hampton MD MTDD
[2018-11-16] MEDS: NORCO-10 PO PRN ×2 (19:04)
[2018-11-16] MEDS: PRILOSEC PO SCH (20:59)
[2018-11-16] MEDS: CARDIZEM CD PO SCH (20:59)
[2018-11-17] MEDS: ZOSYN 2.25 GM in NS 50 ML IV SCH ×4 (02:24→20:12)
[2018-11-17] MEDS: NORCO-10 PO PRN ×3 (02:24→20:12)
[2018-11-17] MEDS: HUMULIN R SUBQ SCH ×4 (06:19→20:16)
[2018-11-17] MEDS: MORPHINE IV PRN ×3 (06:20→18:12)
--- NOTE | 2018-11-17 07:34 | GENERAL SURGERY PROGRESS NOTE ---
DATE: 11/17/2018 SUBJECTIVE: Patient is doing better this morning. He is up and moves around. He says he is feeling better. OBJECTIVE: Vital Signs: Patient is currently afebrile. His vital signs are stable. His tachycardia is improving. General: No acute distress. Cardiovascular: Regular rate and rhythm. Lungs: Grossly clear. Abdomen: Soft. Appropriately tender. RAMBO drain with serosanguineous output. ASSESSMENT AND PLAN: A 62-year-old gentleman currently postoperative day 3 from open cholecystectomy. Postoperative state. At this time, he is improving. I think he is out of the sepsis and SIRS criteria. At this point, we will keep his Baron-Burkett drain in place. We will keep his Robert catheter in place and look at potential discharge in the next 24 to 48 hours. cc: MD Ermias Gonzalez MD
[2018-11-17] MEDS: ASPIRIN PO SCH ×2 (08:22→20:12)
[2018-11-17] MEDS: LOPID PO SCH ×2 (08:22→20:12)
--- NOTE | 2018-11-17 10:45 | PROGRESS NOTE ---
DATE: 11/17/2018 SUBJECTIVE: This morning, Mr. Xiao refers to be doing a lot better, but he is constipated, and he is requesting something to help his bowel to move. OBJECTIVE: Vital Signs: Blood pressure is 137/65, pulse of 87, respirations 15, temperature 99.2 degrees. General: Mr. Xiao is a 62-year-old gentleman. He is in bed. No distress. HEENT: Mucosa is pink and moist. Anicteric. Acyanotic. Neck: Supple. Chest: Clear to auscultation. No crepitations. No rhonchi. Cardiovascular: Regular rate and rhythm. No murmurs, no rubs, no gallops. Abdomen: Soft, nondistended, nontender. Bowel sounds present. There is a RAMBO drain in the right upper quadrant. There is a Robert catheter in place. Extremities: There is a left BKA. LABORATORY DATA: None for today. The patient continues to be on zosyn. All of his other home medications have all been restarted. ASSESSMENT: 1. Biliary colic on presentation associated with acute cholecystitis. The patient is status post open cholecystectomy. He seems to be doing remarkably well. 2. Acute urinary retention. This has been overcome with Robert insertion by Urology. The patient continues to make adequate urine. There is a plan to start training the bladder from tomorrow and hopefully can get the Robert catheter removed. 3. Acute kidney injury secondary to obstructive uropathy. 4. History of some cardiac arrhythmia. Patient is on Cardizem. He is not 100% sure if he was told he had atrial fibrillation. 5. Diabetes mellitus, controlled on insulin regimen. 6. Hypertension/dyslipidemia, controlled. 7. Constipation. We will start the patient on a bowel regimen to help bowel movement. 8. We will also encourage Mr. Xiao to get in a chair and be seen by Physical therapy. cc: MD Ermias Tinajero MD MTDD
[2018-11-17] MEDS: MIRALAX PO SCH (11:22)
[2018-11-17] MEDS: ZOVIRAX OINTMENT TOP SCH ×4 (13:19→20:12)
--- NOTE | 2018-11-17 14:48 | PROGRESS NOTE ---
DATE: 11/17/2018 SUBJECTIVE: No acute events overnight. The patient states he has been feeling better. His catheter has been draining well with clear yellow urine, 850cc recorded yesterday. He denies any nausea or vomiting, and tolerating p.o. intake. OBJECTIVE: Vital Signs: Temperature 98.9 degrees, heart rate 94, blood pressure 156/73, oxygen saturation 94% on room air. General: No acute distress. Resting comfortably in bed. Alert and oriented x3. Respiratory: Good respiratory effort without audible wheezing or rales. Cardiovascular: No evidence of lower extremity edema. Regular rhythm. Abdomen: Soft, nontender, nondistended. Dressing present over the right upper quadrant. : No suprapubic tenderness. No CVA tenderness. Urethral catheter in place, draining clear yellow urine. ASSESSMENT AND PLAN: Mr. Xiao is a 62-year-old with hypertension, hyperlipidemia, type 2 diabetes, and hypoaldosteronemia, who presents in consultation regarding urinary retention and difficulty with Robert catheter placement. I inserted a Robert catheter over a wire. The patient has drained clear yellow urine. Denies any bladder spasms or pain. Will plan to remove the catheter tomorrow for a voiding trial. If the patient continues to have issues with urination, would have to reinsert catheter, and likely follow up in the office with cystoscopy. Will continue monitor from a urologic standpoint. Please call with questions or concerns. cc: MD Ermias Hampton MD MTDD
[2018-11-17] MEDS: CARDIZEM CD PO SCH (20:12)
[2018-11-17] MEDS: PRILOSEC PO SCH (20:12)
[2018-11-17] MEDS ORDERED: CATAPRES-TTS-2 TD SCH (21:45)
[2018-11-18] MEDS: NORCO-10 PO PRN (03:20)
[2018-11-18] MEDS: ZOSYN 2.25 GM in NS 50 ML IV SCH ×2 (03:20→08:15)
[2018-11-18] MEDS: HUMULIN R SUBQ SCH ×2 (06:17→11:18)
--- NOTE | 2018-11-18 07:17 | GENERAL SURGERY PROGRESS NOTE ---
DATE: 11/18/2018 SUBJECTIVE: Patient doing okay. He had his Robert catheter removed. He is actually voiding a little bit. OBJECTIVE: Vital Signs: The patient is currently afebrile. His vital signs are stable. General: No acute distress. Cardiovascular: Regular rate and rhythm. Lungs: Grossly clear. Abdomen: Soft, appropriately tender. RAMBO drain in place, slightly darker, but output overall has decreased. ASSESSMENT AND PLAN: A 62-year-old gentleman, currently postoperative day #4 from open cholecystectomy. Postoperative state. At this time, he continues to improve. I think we can potentially get him out from a surgical point of view, if okay with other providers. cc: MD Ermias Gonzalez MD
[2018-11-18 07:26] LABS: BASO% 1.1 % (0.0-0.8); EOS# 0.61 X1000 (0.0-0.7); EOS% 6.6 % (0.0-10.0); HEMATOCRIT 31.4 % (42.0-52.0); HEMOGLOBIN 10.6 g/dL (14.0-18.0); IMM GRAN# 0.17 X1000 (0.0-0.04); IMM GRAN% 1.8 % (0.0-0.5); LYMPH# 1.03 X1000 (1.2-3.4); LYMPH% 11.2 % (20.5-51.1); MCH 28.3 PG (27-31); MCHC 33.8 g/dL (33-37); MONO# 0.67 X1000 (0.11-0.59); MONO% 7.3 % (1.7-9.3); NEUT# 6.61 X1000 (1.4-6.5); PLT 226 X1000 (130-400); RBC 3.74 XMIL (4.7-6.1); WBC 9.19 X1000 (4.8-10.8)
[2018-11-18 07:53] LABS: AGAP 15; ALBUMIN 3.1 g/dL (3.5-5.0); BUN 16 mg/dL (8-22); CALCIUM 8.9 mg/dL (8.8-10.2); CHLORIDE 102 mmol/L (98-107); COSMO 285; CREATININE 0.8 mg/dL (0.7-1.2); ESTIMATED GFR > 60; GLUCOSE 239 mg/dL (70-104); PHOSPHORUS 2.1 mg/dL (2.7-4.5); SODIUM 138 mmol/L (136-145); TCO2 21 mmol/L (25-35)
[2018-11-18] MEDS: ASPIRIN PO SCH (08:15)
[2018-11-18] MEDS: LOPID PO SCH (08:15)
[2018-11-18] MEDS: MIRALAX PO SCH (08:16)
[2018-11-18] MEDS: ZOVIRAX OINTMENT TOP SCH ×2 (08:16→12:26)
--- NOTE | 2018-11-18 09:41 | PROGRESS NOTE ---
DATE: 11/18/2018 SUBJECTIVE: No acute events overnight. The patient's Robert catheter was removed this morning. The patient has voided multiple times since. The patient denies any suprapubic or CVA pain. Denies any nausea or vomiting. The patient is tolerating p.o. intake. OBJECTIVE: Vital Signs: Temperature 98.7 degrees, heart rate 88, blood pressure 148/66, O2 saturation 95% on room air. General: No acute distress. Resting comfortably in bed. Alert and oriented x3. Abdomen: Soft, nontender, nondistended. RAMBO drain in place. Dressing overlying right upper quadrant. : No suprapubic tenderness. No CVA tenderness. The patient has bedside urinal and has urinated several times. LABORATORY DATA: White blood cell count 9.1, hemoglobin 10.6, hematocrit 31.4, platelets 226,000. Sodium 138, potassium 4, chloride 102, bicarb 21, BUN 16, creatinine 0.8, glucose 239. ASSESSMENT AND PLAN: Mr. Xiao is a 62-year-old with hypertension, hyperlipidemia, type 2 diabetes, and hypoaldosteronemia, who presents in consultation for urinary retention and difficulty with Robert catheter placement. The patient's catheter was removed this morning, and the patient has been able to urinate several times now. He denies any dysuria or hematuria. He feels that he is emptying his bladder to completion. The patient is being scheduled to be discharged later today. Will plan for him to return to clinic in several weeks for followup of difficulty with urination. cc: MD Ermias Hampton MD MTDSeng
[2018-11-18] MEDS: MORPHINE IV PRN (09:46)
[2018-11-18 11:52] VITALS: BP 160/68
--- NOTE | 2018-11-18 13:11 | DISCHARGE SUMMARY ---
ADMISSION DATE: 11/14/2018 DISCHARGE DATE: 11/18/2018 DISPOSITION: Home. FOLLOW-UP: 1. Dr. Isaura Watkins. 2. Dr. Barrera. 3. Dr. Murillo. CONSULTATION DURING ADMISSION: 1. Surgery was consulted. Patient was seen by Dr. Barrera. 2. Urology was consulted. Patient was seen by Dr. Murillo. INVASIVE PROCEDURES DONE DURING THIS ADMISSION: Laparoscopic converted to open cholecystectomy done by Dr. Barrera. INTRAOPERATIVE FINDINGS: 1. Cholecystitis with very thin wall and frail gallbladder with difficult anatomy to visualize laparoscopically. 2. Bedside Robert catheterization was also done by Dr. Murillo. ADMISSION DIAGNOSES: 1. Symptomatic cholelithiasis. 2. Hypertension. 3. Diabetes mellitus. 4. Dyslipidemia. DISCHARGE DIAGNOSES: 1. Biliary colic on presentation associated with acute suppurative cholecystitis status post laparoscopic converted open cholecystectomy. 2. Acute urinary retention, resolved. 3. Acute kidney injury secondary to obstructive uropathy, resolved. 4. History of cardiac arrhythmias on Cardizem. 5. Diabetes mellitus on insulin regimen. 6. Hypertension. 7. Dyslipidemia. 8. Constipation. DISCHARGE MEDICATIONS: 1. Lantus 50 units subcutaneous b.i.d. 2. Aspirin 81 mg b.i.d. 3. Lasix 20 mg p.o. daily. 4. Lansoprazole 30 mg p.o. at bedtime. 5. Insulin sliding scale. 6. Omeprazole/diltiazem 240 p.o. at bedtime. 7. Losartan 100 mg p.o. daily. 8. Clonidine. 9. Montgomery 10 p.o. q.4h p.r.n. 10. Augmentin 875 p.o. b.i.d. PRESENTING COMPLAINT: Abdominal pain. HISTORY OF PRESENT COMPLAINT: Mr. Xiao is a 62-year-old gentleman with multiple comorbidities who presented to the emergency department because of a day to day 2 right upper quadrant abdominal pain which has been getting worse. Upon presenting, he was evaluated and was found to have minimally elevated liver enzymes the following morning. Imaging Studies were done including a CT scan of the abdomen and pelvic which revealed fatty infiltration of the liver and cholelithiasis. Ultrasound of the liver showed cholelithiasis with possible cholecystitis. Surgery was consulted. Mr. Xiao was admitted for medical care. HOSPITAL COURSE: Mr. Xiao was admitted to the medical floor and was started on broad- spectrum IV antimicrobial coverage, adequately fluid resuscitated, and Surgery was consulted. Patient was seen by Dr. Barrera. A decision was made to do a laparoscopic surgery. However, I understand during surgery, it was a very poor laparoscopic window and could not visualize, so it was converted to an open cholecystectomy. Postoperatively. Mr. Xiao developed an acute urinary retention. The nurses tried a couple of times but were unsuccessful to place Robetr catheter. Urology was consulted. Patient was seen by Dr. Murillo. A Robert catheter was placed by him. Subsequently, Mr. Xiao became more stabilized, and started feeling much better. His white cell count which was extremely elevated on the second day of hospitalization got normalized today. His chemistry has also all been reviewed and they are all normal with a normal renal function test today. We think Mr. Xiao is now clinically stable for discharge. All the discharge instructions discussed with him. The was at the bedside at the time of the encounter. TIME SPENT: Time spent for discharge is 45 minutes. Mr. Xiao will follow up with his primary care doctor, Dr. Isaura Watkins and with Dr. Barrera as well as with Dr. Murillo. At the time of discharge, vitals show blood pressure is 160/68, pulse of 88, respirations 15, and temperature is 98.5 degrees. His physical exam is unremarkable except that he still has RAMBO drain in place in the gallbladder fossa. He has prosthetic limb on the left, and his Robert catheter has been removed, but the patient has been able to pass urine. cc: MD Ermias Tinajero MD Lindsay Smith Matthew L. Figh, MD Patrick Guthrie, MD
== END 2018-11-18 13:06 | disposition home or self-care (01) | DRG 414 ==
LOC: ED 00:28 → SUATTDRO 04:19 → 4N 04:19 → 2N 17:28
PROVIDERS: ADMIT Emergency Medicine; ATTEND Internal Medicine